=== PATIENT | male | born 1935 | race Hispanic/Latino ===

== ENCOUNTER 2019-02-27 11:04 | Inpatient (IN) | payer MEDICARE ==
[2019-02-27 11:10] VITALS: BMI 23.0
--- NOTE | 2019-02-27 14:23 | ED PDOC ---
HPI: Psych/Substance Abuse Time Seen by Provider: 02/27/19 11:28 Chief Complaint (Nursing): Psychiatric Evaluation Chief Complaint (Provider): Psych Eval History Per: Patient History/Exam Limitations: no limitations Onset/Duration Of Symptoms: Days Current Symptoms Are (Timing): Still Present Suicide/Self Injury Attempted (Context): None Modifying Factor(s): None Severity: None Associated Symptoms: Anxiety, Depression, Other (homicidal ideations) Involuntary Hold By: None Additional History Per: Patient Additional Complaint(s): 83 year old male with history of hypertension, depression and anxiety presents to the ED with complaints of having homicidal thoughts for "sometime" now. Patient reports he has thoughts of hurting his because for the past year they having been having several marital problems, although for the 3 weeks they having been very "loving" to each other. Patient states yesterday while cutting a pill he noted the knife that he was using and said to himself " this would be a long enough knife to reach the heart". Patient states he has never attempted to hurt his but is aware that his thoughts are not "good" and he called adult protected services this morning and was advised to come to ED for evaluation. Patient denies drugs or alcohol use. Denies auditory or visual hallucinations. Denies physical complaints. Past Medical History Reviewed: Historical Data, Nursing Documentation, Vital Signs Vital Signs: Last Vital Signs Temp 98.4 F 02/27/19 11:07 Pulse 70 02/27/19 11:07 Resp 16 02/27/19 11:07 BP 212/87 H 02/27/19 11:07 Pulse Ox 98 02/27/19 11:07 HUA Report Viewed: Yes Primary Care Provider: Non [facility] Provider, - Medical History PMH: Anxiety, Depression, HTN - Family History Family History: States: Unknown Family Hx - Living Arrangements Living Arrangements: With Family - Immunization History Hx Tetanus Toxoid Vaccination: No Hx Influenza Vaccination: No Hx Pneumococcal Vaccination: No - Home Medications Home Medications: Ambulatory Orders Medication Instructions Recorded Alfuzosin HCl [Uroxatral] 10 mg PO DAILY 02/27/19 Metoprolol Tartrate [Lopressor] 12.5 mg PO DAILY 02/27/19 - Allergies Allergies/Adverse Reactions: Allergies Allergy/AdvReac Type Severity Reaction Status Date / Time Penicillins Allergy RASH Verified 02/27/19 11:39 Sulfa (Sulfonamide Allergy RASH Verified 02/27/19 11:39 Antibiotics) Review of Systems ROS Statement: Except As Marked, All Systems Reviewed And Found Negative Psych: Positive for: Other (homicidal ideations). Negative for: Anxiety, Depression, Suicidal ideation, Withdrawal Physical Exam - Reviewed Nursing Documentation Reviewed: Yes Vital Signs Reviewed: Yes - Physical Exam Appears: Positive for: Well, Non-toxic, No Acute Distress Head Exam: Positive for: ATRAUMATIC, NORMAL INSPECTION, NORMOCEPHALIC Skin: Positive for: Normal Color, Warm, DRY Eye Exam: Positive for: EOMI, Normal appearance, PERRL ENT: Positive for: Normal ENT Inspection. Negative for: Nasal Congestion, Tonsillar Exudate, Tonsillar Swelling Neck: Positive for: Normal, Painless ROM, Supple Cardiovascular/Chest: Positive for: Regular Rate, Rhythm, Chest Non Tender Respiratory: Positive for: CNT, Normal Breath Sounds Pulses-Radial (L): 2+ Pulses-Radial (R): 2+ Gastrointestinal/Abdominal: Positive for: Normal Exam, Bowel Sounds (normoactive ), Soft. Negative for: Tenderness, Distended Back: Positive for: Normal Inspection Extremity: Positive for: Normal ROM. Negative for: Deformity, Swelling Neurological/Psych: Positive for: Awake, Alert, Normal Tone, Oriented, Mood/Affect (pleasant, good eye contact, well groomed ) - Laboratory Results Result Diagrams: 02/28/19 06:27 02/28/19 06:27 - ECG ECG Rhythm: Positive for: Sinus Rhythm, 1st Degree Heart Block Interpretation Of ECG: EKG SEEN BY DR. TROY Rate: 69 O2 Sat by Pulse Oximetry: 98 Pulse Ox Interpretation: Normal - Radiology X-Ray: Read By Radiologist X-Ray Interpretation: No Acute Disease Medical Decision Making Medical Decision Making: --CBC --CMP --TROPONIN --UDS --UA --CHEST XRAY --ALCOHOL --ACETOMINOPHEN --CRISIS EVAL 15:00 TEMP:98.4 HR: 95 B/P:155/85 O2SAT: 95% RM AIR LABS AND CHEST XRAY REVIEWED BY ME. UNREMARKABLE. PATIENT MEDICALLY CLEARED FOR PSYCH EVALUATION. 16:22 temp: 98.4 hr: 56 b/p:151/88 o2sat: 99% rm air. no change in condition, pending psych eval disposition, on 1:1. 17:53 Patient to be admitted to [facility], Dx: Homicidal Ideations, Dr. doyle. Disposition - Clinical Impression Clinical Impression: Homicidal ideation - Patient ED Disposition Is Patient to be Admitted: Yes Counseled Patient/Family Regarding: Diagnosis - Disposition Disposition Time: 17:53 Condition: STABLE - Pt Status Changed To: Hospital Disposition Of: Inpatient - Admit Certification Admit to Inpatient:: After my assessment, the patient will require hospitalization for at least two midnights. This is because of the severity of symptoms shown, intensity of services needed, and/or the medical risk in this patient being treated as an outpatient. - POA Present On Arrival: None
[2019-02-27 14:27] LABS: URINE BACTERIA RARE (<OCC); URINE BILIRUBIN NEGATIVE (NEGATIVE); URINE BLOOD NEGATIVE (NEGATIVE); URINE CLARITY CLEAR (Clear); URINE COLOR YELLOW (YELLOW); URINE GLUCOSE (UA) NEG (NEGATIVE); URINE LEUKOCYTE ESTERASE NEG Leu/uL (Negative); URINE PROTEIN 100 mg/dL (NEGATIVE); URINE UROBILINOGEN 0.2-1.0 mg/dL (0.2-1.0)
[2019-02-27 14:30] LABS: BASO % 0.7 % (0.0-2.0); EOS # 0.1 K/uL (0.0-0.7); EOS % 1.8 % (0.0-4.0); HEMOGLOBIN 14.3 g/dL (12.0-18.0); LYMPH # 0.9 K/uL (1.0-4.3); LYMPH % 17.9 % (20.0-40.0); MEAN CELL VOLUME 98.7 fl (80.0-94.0); MEAN CORPUSCULAR HEMOGLOBIN 32.2 pg (27.0-31.0); MEAN CORPUSCULAR HGB CONC 32.7 g/dL (33.0-37.0); MEAN PLATELET VOLUME 12.2 fl (7.2-11.7); MONO # 0.4 K/uL (0.0-0.8); MONO % 8.4 % (0.0-10.0); NEUT # 3.4 K/uL (1.8-7.0); NEUT % 71.2 % (50.0-75.0); NRBC % 0.1 % (0.0-0.0); RBC 4.45 Mil/uL (4.40-5.90); RED CELL DISTRIBUTION WIDTH 13.7 % (11.5-14.5); WHITE BLOOD COUNT 4.8 K/uL (4.8-10.8)
[2019-02-27 14:31] LABS: ALB/GLOB RATIO 1.4 (1.0-2.1); ALBUMIN 3.9 g/dL (3.5-5.0); ALT/SGPT 30 U/L (21-72); AST/SGOT 28 U/L (17-59); BLOOD UREA NITROGEN 21 mg/dl (9-20); CALCIUM 8.6 mg/dL (8.4-10.2); GFR NON-AFRICAN AMERICAN > 60
[2019-02-27 14:33] LABS: BARBITURATES, UR NEGATIVE (NEGATIVE); BENZODIAZEPINES, UR NEGATIVE (NEGATIVE); OPIATES, UR NEGATIVE (NEGATIVE); PHENCYCLIDINE, UR NEGATIVE (NEGATIVE)
--- NOTE | 2019-02-27 15:03 | RAD ---
Date of service: 02/27/2019 HISTORY: medical clearance COMPARISON: No prior. FINDINGS: LUNGS: No active pulmonary disease. PLEURA: No significant pleural effusion identified, no pneumothorax apparent. CARDIOVASCULAR: No radiographic findings to suggest acute or significant cardiovascular disease. Atherosclerotic calcifications identified primarily aortic arch. OSSEOUS STRUCTURES: No significant abnormalities. VISUALIZED UPPER ABDOMEN: Normal. OTHER FINDINGS: None. IMPRESSION: No active disease.
--- NOTE | 2019-02-27 17:49 | CARD ---
APPROVED REPORT Date of service: 02/27/2019 EKG Measurement Heart [id number] <Conclusion> Sinus rhythm with 1st degree AV block with premature supraventricular complexes Right bundle branch block Inferior infarct, age undetermined Abnormal ECG
[2019-02-28] MEDS ORDERED: Bismuth Subsalicylate 262 mg/15 ml Sus (240 ml) PO PRN (01:00)
[2019-02-28] MEDS ORDERED: Magnesium Hydroxide Susp 30 ml UD PO PRN (01:00)
[2019-02-28] MEDS ORDERED: Alum-Mag Hydrox-Simethicone Susp (30 mL) PO PRN (01:00)
--- NOTE | 2019-02-28 02:11 | PCM.BM ---
<EverAmritGeorge - Last Filed: 02/28/19 02:08> Treatment Plan Problems - Problems identified on initial assessmt Homicidal Ideation Date Initiated: 02/28/19 Time Initiated: 02:09 Assessment reference: NA Status: Active Agitated/aggressive behavior Date Initiated: 02/28/19 Time Initiated: 02:09 Assessment reference: NA Status: Active Ineffective Impulse Control Date Initiated: 02/28/19 Time Initiated: 02:10 Assessment reference: NA Status: Active Anxiety Date Initiated: 02/28/19 Time Initiated: 02:10 Assessment reference: NA Status: Active Fear Date Initiated: 02/28/19 Time Initiated: 02:10 Assessment reference: NA Status: Active Treatment assets and liabiliti Patient Assests: adapts well, cooperative, educated, insightful, ADL independent, negotiates basic needs, cognitively intact Patient Liabilities: relationship conflicts, medical problems, auditory impairment - Milieu Protocol Maintain good personal hygiene: every shift Encourage regular showers, every shift Remind patient to perform daily oral care, every shift Assist patient to perform ADL's Conduct patient checks and document Observation sheet: Q15 minutes Maintain personal safety: every shift Educate patient to report safety concerns to staff, every shift Monitor environment for contraband/sharps Medication safety: Monitor for expected outcome, potential side effects: every shift, Assess barriers to learning: every shift, Assess readiness for medication education: every shift <Aracelis Goncalves - Last Filed: 02/28/19 11:16> - Diagnosis (1) Major depressive disorder Status: Acute Interventions: Medication management, Individual and group therapy, Psychoeducation 02/28/19 11:17 <Dada Harley - Last Filed: 03/04/19 10:05> Family Contact Family involvement: Family/SO is involved Family contact: Patient agrees to contact, Family has been contacted by patient, Telephone contact initiated by staff Family contact name: Elizabeth Banks - Family contacted how many times per week?: 3 Family contact comment: Head Of [employer] spoke with pt's , Elizabeth [phone], from 1711 until 1721 on 03/01/19 to discuss pt returning home on 03/03/19. Elizabeth reported that she feels safe with pt returning home and is "looking forward to seeing him." Elizabeth denied that pt has even been physically abusive and even does not view his derogatory statements as verbal abuse. Elizabeth reported that pt has been better to her as of late and reported that he was a good father. Elizabeth reported that pt cares for things around the home and she is not used to being alone. Elizabeth reported that they have been for almost 60 years. Elizabeth reported that pt always gets help for things immediately and is proud of the pt for coming to the hospital as it showed concern and initiative, but that she did not feel pt warranted admission. Head Of [employer] explained 48 hour notice and that pt is refusing medications on the unit. Elizabeth reported that she does not think pt should take medications and is also fearful of their side effects. Head Of [employer] explained that pt would be provided with a taxi voucher to return home on 03/03/19. - Goals for Treatment Patient goals for treatment: Pt did not express any goals for treatment at time of treatment team. Pt is refusing medication and reported that he would like to use pasr life regression to help him better control his thoughts and impulses. Patient's family/SO goals for treatment: Elizabeth offered no goals for treatment at this time and is looking forward to pt returning home. Discharge/Continuing Care - Education Needs Education Needs: Family Medication, Family Diagnosis/Disease Process, Family Coping Skills, Family Aftercare Safety Plan, Patient Medication, Patient Diagnosis/Disease Process, Patient Coping Skills, Patient Aftercare Safety Plan - Discharge Discharge Criteria: Tolerates medication w/o severe side effects, Free of Homicidal thoughts, Reduction of target symptoms Discharge to:: Home, With Family - Treatment Team Participation Patient/Family/SO Statement: 03/04/19 10:00 Pt seen in treatment team on 03/01/19. Pt seen in team from 1022 until 1037. Pt offered no complaints at this time and has signed a 48 hour notice asking to leave the unit. Pt reported that he no longer has thoughts to harm his and never had intent to act on thoughts. Pt reported that his has thrown out all of the knives in the home, and initially was very upset when pt told her about the thoughts. Pt reported him and his have spoken and she is more understanding and wants him to return home. Pt is still refusing medications and wants to engage in past life regression therapy to help manage his thoughts and impulses. Pt reported he will contact the developer of this modality, Dr. Syd León, to find a therapist. Pt reported that he needs to return home to help his around the house. Pt's affect and mood were broad and appropriate. Pt dressed in hospital gowns and wearing glasses. Pt's speech was at a normal rate and tone and his thought content and process were logical and goal directed. pt's insight and judgment are impaired. Pt made appropriate eye contact and his psychomotor movements are within normal limits for his age. Pt is oriented X4. Pt denied current SI/HI and AVT hallucinations. Discussed with Family/SO: Yes Was Patient/Family/SO present at Treatment Team Meeting: Yes
[2019-02-28 06:34] LABS: HEMOGLOBIN 15.6 g/dL (12.0-18.0); MEAN CELL VOLUME 98.9 fl (80.0-94.0); MEAN CORPUSCULAR HEMOGLOBIN 32.8 pg (27.0-31.0); MEAN CORPUSCULAR HGB CONC 33.2 g/dL (33.0-37.0); RBC 4.76 Mil/uL (4.40-5.90); RED CELL DISTRIBUTION WIDTH 13.9 % (11.5-14.5); WHITE BLOOD COUNT 5.2 K/uL (4.8-10.8)
[2019-02-28 06:45] LABS: IRON 139 ug/dL (49-181)
[2019-02-28 06:48] LABS: ALB/GLOB RATIO 1.4 (1.0-2.1); ALBUMIN 4.2 g/dL (3.5-5.0); ALT/SGPT 28 U/L (21-72); AST/SGOT 30 U/L (17-59); BLOOD UREA NITROGEN 25 mg/dl (9-20); CALCIUM 9.1 mg/dL (8.4-10.2); GFR NON-AFRICAN AMERICAN > 60; HDL CHOLESTEROL 48 MG/DL (30-70)
[2019-02-28 06:55] LABS: % IRON SATURATION 49 % (20-55); TOTAL IRON BINDING CAPACITY 285 ug/dL (250-450)
[2019-02-28 07:00] LABS: LDL CHOLESTEROL 127 mg/dL (0-129)
[2019-02-28 07:32] LABS: FERRITIN 87.6 ng/Ml (17.9-464)
--- NOTE | 2019-02-28 11:21 | PCM.PSYCH ---
Initial Psychiatric Evaluation - Initial Psychiatric Evaluation Type of Admission: Voluntary Legal Status: Capacity Chief Complaint (in patient's own words): Homicidal thoughts Patient's Reaction to Hospitalization: HPI: 83 yo male w/ h/o depression and treatment at the [facility], presents after he called APS because he was having homicidal thoughts to stab his . He reports that the thoughts are intrusive and he finds them disturbing. He denies that he currently wants to kill her. He also reports feeling anxious that his may try to kill him in his sleep. He currently feels safe in the hospital. He also reports feeling depressed and anxious. He does not want to take psychotropic medications at this time and reports that he was prescribed an antidepressants in the past, but stopped taking it. PPHx: Denies h/o psychiatric admissions; h/o outpatient tx at the [facility] PMHx: HTN, h/o OK s/p 10 stents ALL: PCN, Sulfa SHx: Lives w/ his ; denies drugs/etoh/cig; 2 adult daughters Current Medications: Active Medications Generic Name Dose Route Start Last Admin Trade Name Freq PRN Reason Stop Dose Admin Acetaminophen 650 mg 02/28/19 01:00 Tylenol 325mg Tab PO Q4 PRN Other Al Hydrox/Mg Hydrox/Simethicone 30 ml 02/28/19 01:00 Maalox Plus 30 Ml PO Q4 PRN Dyspepsia Bismuth Subsalicylate 524 mg 02/28/19 01:00 Pepto-Bismol PO Q4 PRN Diarrhea Lorazepam 0.5 mg 02/28/19 01:00 Ativan PO 03/14/19 01:01 HS PRN Insomnia Lorazepam 0.5 mg 02/28/19 01:00 Ativan PO 03/14/19 01:01 Q6 PRN Anixety/Agitation Magnesium Hydroxide 30 ml 02/28/19 01:00 Milk Of Magnesia PO HS PRN Constipation Past Psychiatric History - Past Psychiatric History Pertinent Medical Hx (Current Medical&Sleep Prob, Allergies): Allergies Allergy/AdvReac Type Severity Reaction Status Date / Time Penicillins Allergy RASH Verified 02/27/19 11:39 Sulfa (Sulfonamide Allergy RASH Verified 02/27/19 11:39 Antibiotics) Alfuzosin HCl [Uroxatral] 10 mg PO DAILY 02/27/19 Metoprolol Tartrate [Lopressor] 12.5 mg PO DAILY 02/27/19 Review of Systems - Psychiatric Psychiatric: As Per HPI, Abnormal Sleep Pattern, Anhedonia, Anxiety, Depression, Difficulty Concentrating, Homicidal Ideation, Memory Loss Mental Status Examination - Personal Presentation Personal Presentation: Looks stated age - Affect Affect: Constricted - Motor Activity Motor Activity: Calm - Reliability in Providing Information Reliability in Providing Information: Poor, due to cognitve impairment - Speech Speech: Coherent - Mood Mood: Depressed - Formal Thought Process Formal Thought Process: Loosening of associations - Hallucinations/Delusions Additional comments: No AH/VH - Obsessions/Compulsions Obsessions: No Compulsions: No - Cognitive Functions Orientation: Person, Place, Situation, Time Sensorium: Alert Judgement: Intact, as evidence by: Insight regarding need for hospitalization - Risk Risk: Homicidal - Strength & Assets Inventory Strength & Assets Inventory: Family support, Employment history, Cooperative - Limitations Limitations: Decreased memory, recent DSM 5 DX - DSM 5 DSM 5 Diagnosis: Major Depressive Disorder; r/o Major Neurocognitive Disorder - Recommended/Plan of Treatment Treatment Recommendations and Plan of Treatment: Major Depressive Disorder; r/o Major Neurocognitive Disorder -Admit to psychiatry unit -Obtain collateral history -Individual and group therapy -Medicine consult -Patient not agreeable to treatment with psychotropic medications at this time -Disposition planning - Smoking Cessation Smoking Cessation Initiated: No Reason for not providing: Not nidicated
[2019-02-28 13:19] LABS: FOLATE 7.8 ng/mL
[2019-02-28] MEDS ORDERED: RISPERIDONE 0.25 MG ODT PO PRN (13:36)
--- NOTE | 2019-02-28 15:03 | CP.PCM.CON ---
History of Present Illness - History of Present Illness History of Present Illness: 83 yo male with history of HTN, CAD and depression admitted to psyche unit because of homicidal ideation. Review of Systems - Review of Systems All systems: reviewed and no additional remarkable complaints except (aside from those mentioned above, 12 point system review were negative by me) Past Patient History - Past Social History Smoking Status: Never Smoked Chewing Tobacco Use: No Cigar Use: No Alcohol: None - CARDIAC Hx Cardiac Disorders: No - PULMONARY Hx Respiratory Disorders: No Hx Tuberculosis: No - NEUROLOGICAL Hx Neurological Disorder: No HX Cerebrovascular Accident: No Hx Seizures: No - HEENT Hx HEENT Problems: No - RENAL Hx Chronic Kidney Disease: No - ENDOCRINE/METABOLIC Hx Endocrine Disorders: No - HEMATOLOGICAL/ONCOLOGICAL Hx Cancer: No Hx Human Immunodeficiency Virus (HIV): No - INTEGUMENTARY Hx Dermatological Problems: No - MUSCULOSKELETAL/RHEUMATOLOGICAL Hx Musculoskeletal Disorders: Yes Hx Falls: Yes - GASTROINTESTINAL Hx Gastrointestinal Disorders: No - GENITOURINARY/GYNECOLOGICAL Hx Genitourinary Disorders: Yes Hx Prostate Problems: Yes - PSYCHIATRIC Hx Substance Use: No Meds Allergies/Adverse Reactions: Allergies Allergy/AdvReac Type Severity Reaction Status Date / Time Penicillins Allergy RASH Verified 02/27/19 11:39 Sulfa (Sulfonamide Allergy RASH Verified 02/27/19 11:39 Antibiotics) - Medications Medications: Current Medications Acetaminophen (Tylenol 325mg Tab) 650 mg PO Q4 PRN PRN Reason: Other Al Hydrox/Mg Hydrox/Simethicone (Maalox Plus 30 Ml) 30 ml PO Q4 PRN PRN Reason: Dyspepsia Bismuth Subsalicylate (Pepto-Bismol) 524 mg PO Q4 PRN PRN Reason: Diarrhea Lorazepam (Ativan) 0.5 mg PO HS PRN PRN Reason: Insomnia Stop: 03/14/19 01:01 Lorazepam (Ativan) 0.5 mg PO Q6 PRN PRN Reason: Anixety/Agitation Stop: 03/14/19 01:01 Magnesium Hydroxide (Milk Of Magnesia) 30 ml PO HS PRN PRN Reason: Constipation Metoprolol Tartrate (Lopressor) 25 mg PO Q12 VASYL Risperidone (Risperidone Odt 0.25mg) 0.25 mg PO Q12 PRN PRN Reason: Agitation Physical Exam - Constitutional Appears: No Acute Distress - Head Exam Head Exam: ATRAUMATIC - Eye Exam Eye Exam: absent: Scleral icterus - ENT Exam ENT Exam: Mucous Membranes Moist - Neck Exam Neck exam: Negative for: Meningismus - Respiratory Exam Respiratory Exam: absent: Rales, Rhonchi, Wheezes, Respiratory Distress - Cardiovascular Exam Cardiovascular Exam: REGULAR RHYTHM, +S1, +S2 - GI/Abdominal Exam GI & Abdominal Exam: Soft. absent: Tenderness - Rectal Exam Rectal Exam: Deferred - Neurological Exam Neurological exam: Alert, Oriented x3 - Psychiatric Exam Psychiatric exam: Normal Affect - Skin Skin Exam: Dry, Intact Results - Vital Signs Recent Vital Signs: Last Vital Signs Temp 97.5 F L 02/28/19 06:00 Pulse 56 L 02/28/19 06:00 Resp 19 02/28/19 06:00 BP 164/75 H 02/28/19 06:00 Pulse Ox 99 02/28/19 00:33 - Labs Result Diagrams: 02/28/19 06:27 02/28/19 06:27 Labs: Laboratory Results - last 24 hr 02/28/19 02/28/19 02/28/19 06:27 06:27 06:27 WBC 5.2 RBC 4.76 Hgb 15.6 Hct 47.1 MCV 98.9 H MCH 32.8 H MCHC 33.2 RDW 13.9 Plt Count 97 L Sodium 142 Potassium 3.5 L Chloride 101 Carbon Dioxide 32 H Anion Gap 13 BUN 25 H Creatinine 1.0 Est GFR ( Amer) > 60 Est GFR (Non-Af Amer) > 60 Random Glucose 99 Hemoglobin A1c Calcium 9.1 Iron 139 TIBC 285 % Saturation 49 Ferritin 87.6 Total Bilirubin 1.1 AST 30 ALT 28 Alkaline Phosphatase 72 Total Protein 7.2 Albumin 4.2 Globulin 3.0 Albumin/Globulin Ratio 1.4 Triglycerides 75 Cholesterol 206 H LDL Cholesterol Direct 127 HDL Cholesterol 48 Vitamin B12 573 Folate 7.8 Free T4 Thyroxine (T4) 9.55 TSH 3rd Generation 2.98 02/28/19 02/28/19 06:27 06:27 WBC RBC Hgb Hct MCV MCH MCHC RDW Plt Count Sodium Potassium Chloride Carbon Dioxide Anion Gap BUN Creatinine Est GFR ( Amer) Est GFR (Non-Af Amer) Random Glucose Hemoglobin A1c 5.9 Calcium Iron TIBC % Saturation Ferritin Total Bilirubin AST ALT Alkaline Phosphatase Total Protein Albumin Globulin Albumin/Globulin Ratio Triglycerides Cholesterol LDL Cholesterol Direct HDL Cholesterol Vitamin B12 Folate Free T4 1.34 Thyroxine (T4) TSH 3rd Generation Assessment & Plan (1) Homicidal ideation Status: Acute Comment: anjel is managing
--- NOTE | 2019-03-01 09:45 | CP.PCM.CON ---
History of Present Illness - History of Present Illness History of Present Illness: Pt is an 83 year old male admitted to [facility] and referred to the telegraphic typewriter repairer for evaluation. ON the DRS, pt scored an overall score of 126. Pt scored within normal limits on Attention, Construction, Memory, and conceptualization tasks. Pt's Initiation skills fell in the Deficient Range. Overall 126 Attention 36 conceptualization 36 Memory 25 Construction 4 Initiation 25 (32= within normal limits). painting trades worker consulted for discharge/future planning. Thank you for this referral, Dr. Herrera Past Patient History - Past Social History Smoking Status: Never Smoked Chewing Tobacco Use: No Cigar Use: No Alcohol: None - CARDIAC Hx Cardiac Disorders: No - PULMONARY Hx Respiratory Disorders: No Hx Tuberculosis: No - NEUROLOGICAL Hx Neurological Disorder: No HX Cerebrovascular Accident: No Hx Seizures: No - HEENT Hx HEENT Problems: No - RENAL Hx Chronic Kidney Disease: No - ENDOCRINE/METABOLIC Hx Endocrine Disorders: No - HEMATOLOGICAL/ONCOLOGICAL Hx Cancer: No Hx Human Immunodeficiency Virus (HIV): No - INTEGUMENTARY Hx Dermatological Problems: No - MUSCULOSKELETAL/RHEUMATOLOGICAL Hx Musculoskeletal Disorders: Yes Hx Falls: Yes - GASTROINTESTINAL Hx Gastrointestinal Disorders: No - GENITOURINARY/GYNECOLOGICAL Hx Genitourinary Disorders: Yes Hx Prostate Problems: Yes - PSYCHIATRIC Hx Substance Use: No Meds Allergies/Adverse Reactions: Allergies Allergy/AdvReac Type Severity Reaction Status Date / Time Penicillins Allergy RASH Verified 02/27/19 11:39 Sulfa (Sulfonamide Allergy RASH Verified 02/27/19 11:39 Antibiotics) - Medications Medications: Current Medications Acetaminophen (Tylenol 325mg Tab) 650 mg PO Q4 PRN PRN Reason: Other Al Hydrox/Mg Hydrox/Simethicone (Maalox Plus 30 Ml) 30 ml PO Q4 PRN PRN Reason: Dyspepsia Bismuth Subsalicylate (Pepto-Bismol) 524 mg PO Q4 PRN PRN Reason: Diarrhea Lorazepam (Ativan) 0.5 mg PO HS PRN PRN Reason: Insomnia Stop: 03/14/19 01:01 Lorazepam (Ativan) 0.5 mg PO Q6 PRN PRN Reason: Anixety/Agitation Stop: 03/14/19 01:01 Magnesium Hydroxide (Milk Of Magnesia) 30 ml PO HS PRN PRN Reason: Constipation Metoprolol Tartrate (Lopressor) 25 mg PO Q12 VASYL Last Admin: 03/01/19 08:42 Dose: 25 mg Risperidone (Risperidone Odt 0.25mg) 0.25 mg PO Q12 PRN PRN Reason: Agitation Results - Vital Signs Recent Vital Signs: Last Vital Signs Temp 98.1 F 03/01/19 06:00 Pulse 63 03/01/19 08:42 Resp 18 03/01/19 06:00 BP 154/70 H 03/01/19 08:42 Pulse Ox 99 02/28/19 00:33 - Labs Result Diagrams: 02/28/19 06:27 02/28/19 06:27 Labs: Laboratory Results - last 24 hr 02/28/19 02/28/19 02/28/19 06:27 06:27 06:27 Hemoglobin A1c 5.9 Folate 7.8 RPR Nonreactive
--- NOTE | 2019-03-01 10:45 | PCM.PYCHPN ---
Psychiatric Progress Note - Psychiatric Progress Note Patient seen today, length of contact: Pt evaluated, case discussed w/ team, chart reviewed Patient Chief Complaint: "I'm feeling better." Problems Identified/Issues Discussed: Patient reports that he no longer has intrusive thoughts to harm his . He denies acute AH/VH/paranoia. He feels that he will be safe at home and does not believe he will harm his or his will harm him. He is not agreeable to treatment with psychotropic medications at this time. Patient agreeable to treatment team calling patient's for collateral history. Medication Change: No (Patient not agreeable to medications) Medical Record Reviewed: Yes Consults ordered or reviewed: Medicine consult, Psychology consult Mental Status Examination - Cognitive Function Orientation: Person, Place, Situation, Time Memory: Intact Decription of patient's judgement and insights: Improving I/J - Mood Mood: Anxious - Affect Affect: Constricted - Formal Thought Process Formal Thought Process: Loosening of associations, Circumstantial Psychotic Thoughts and Behaviors: Denies acute AH/VH - Suicidal Ideation Suicidal Ideation: No - Homicidal Ideation Homicidal Ideation: No Goal/Treatment Plan - Goal/Treatment Plan Need for Continued Stay: Remain at risks for inpatient hospitalization Progress Toward Problem(s) and Goals/Treatment Plan: Major Depressive Disorder -Obtain collateral history -Individual and group therapy -Medicine consult -Psychology consult -Patient not agreeable to treatment with psychotropic medications at this time -Disposition planning- will continue to observe clinically for safety
[2019-03-01 21:29] VITALS: O2SAT 98
--- NOTE | 2019-03-02 14:14 | PCM.PYCHPN ---
Psychiatric Progress Note - Psychiatric Progress Note Patient seen today, length of contact: Pt evaluated, case discussed w/ team, chart reviewed Patient Chief Complaint: may be I can use the help Problems Identified/Issues Discussed: pt on evaluation reported that his anger stems from the fact that neither him or his have any help, they both are responsible for all their instrumental daily activities , which is currently hard on them particularly with their limited mobility, pt also reported that he has been hoarding and has a cluttered house psychoeducation provided discussed importance of medication compliance, kirstie discussed the need to be linked to social work case manager, pt agreed to continue with hospitalization for further stabilization , denied any current suicidal or homicidal ideation denied perceptual disturbances DSM 5 Symptoms Update: depression Medication Change: Yes (start lexapro 5mg qhs ) Medical Record Reviewed: Yes Mental Status Examination - Cognitive Function Orientation: Person, Place, Situation, Time Memory: Intact Association: WNL Fund of Knowledge: WN Decription of patient's judgement and insights: poor - Mood Mood: Anxious - Affect Affect: Constricted - Speech Speech: Appropriate - Formal Thought Process Formal Thought Process: Circumstantial - Suicidal Ideation Suicidal Ideation: No - Homicidal Ideation Homicidal Ideation: No Goal/Treatment Plan - Goal/Treatment Plan Need for Continued Stay: Remain at risks for inpatient hospitalization, Discharge may exacerbated symptoms Progress Toward Problem(s) and Goals/Treatment Plan: start lexapro 5mg qhs referral to social work case manager on discharge
--- NOTE | 2019-03-03 11:52 | PCM.PYCHPN ---
Psychiatric Progress Note - Psychiatric Progress Note Patient seen today, length of contact: Pt evaluated, case discussed w/ team, chart reviewed Patient Chief Complaint: I AM FINE Problems Identified/Issues Discussed: pt seen in bed , calm cooperative , compliant with treatment no reported side effects, denied S/H I denied perceptual disturbances Medication Change: Yes (start lexapro 5mg qhs ) Medical Record Reviewed: Yes Mental Status Examination - Cognitive Function Orientation: Person, Place, Situation, Time Memory: Intact Association: WNL Fund of Knowledge: WN Decription of patient's judgement and insights: poor - Mood Mood: Anxious - Affect Affect: Constricted - Speech Speech: Appropriate - Formal Thought Process Formal Thought Process: Circumstantial - Suicidal Ideation Suicidal Ideation: No - Homicidal Ideation Homicidal Ideation: No Goal/Treatment Plan - Goal/Treatment Plan Need for Continued Stay: Remain at risks for inpatient hospitalization, Discharge may exacerbated symptoms Progress Toward Problem(s) and Goals/Treatment Plan: lexapro 5mg qhs referral to socially responsible investment adviser on discharge
--- NOTE | 2019-03-04 12:21 | PCM.PYCHPN ---
Psychiatric Progress Note - Psychiatric Progress Note Patient seen today, length of contact: Pt evaluated, case discussed w/ team, chart reviewed Patient Chief Complaint: I hope I can get some help then I will leave Problems Identified/Issues Discussed: pt seen in bed , calm cooperative , compliant with treatment no reported side effects, reported worried about his current living situation, requesting help with his cluttered apartment , denied S/H I denied perceptual disturbances Medication Change: Yes (start lexapro 5mg qhs ) Medical Record Reviewed: Yes Mental Status Examination - Cognitive Function Orientation: Person, Place, Situation, Time Memory: Intact Association: WNL Fund of Knowledge: [facility] Decription of patient's judgement and insights: poor - Mood Mood: Anxious - Affect Affect: Constricted - Speech Speech: Appropriate - Formal Thought Process Formal Thought Process: Circumstantial - Suicidal Ideation Suicidal Ideation: No - Homicidal Ideation Homicidal Ideation: No Goal/Treatment Plan - Goal/Treatment Plan Need for Continued Stay: Remain at risks for inpatient hospitalization, Discharge may exacerbated symptoms Progress Toward Problem(s) and Goals/Treatment Plan: lexapro 5mg qhs referral to social studies department chair on discharge
[2019-03-04 16:04] VITALS: RESP 20
[2019-03-05 06:35] VITALS: TEMP 98.4
[2019-03-05 08:48] VITALS: BP 159/77; PULSE 81
--- NOTE | 2019-03-05 08:53 | PCM.PYCHDC ---
Mental Status Examination - Mental Status Examination Orientation: Person, Place, Situation, Time Memory: Intact Mood: Neutral Affect: Broad Speech: Appropriate Formal Thought Process: No Impairment Description of patient's judgement and insight: Fair I/J Psychotic Thoughts and Behaviors: Denies acute AH/VH/paranoia/delusions Suicidal Ideation: No Current Homicidal Ideation?: No Discharge Summary - Discharge Note Reason for Hospitalization: HPI: 83 yo male w/ h/o depression and treatment at the [facility], presents after he called APS because he was having homicidal thoughts to stab his . He reports that the thoughts are intrusive and he finds them disturbing. He denies that he currently wants to kill her. He also reports feeling anxious that his may try to kill him in his sleep. He currently feels safe in the hospital. He also reports feeling depressed and anxious. He does not want to take psychotropic medications at this time and reports that he was prescribed an antidepressants in the past, but stopped taking it. 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 Reason for request. 2. Findings. 3. Follow-up Consultations: Medicine consult, Psychology consult Summary of Hospital Course include:: 1. Description of specific treatment plan utilized for patients during their course of treatmen. 2. Summarize the time- course for resolution of acute symptoms and/or regressed behaviors. 3. Describe issues identified and worked on during hospitalization. 4. Describe medication utilized. 5. Describe medical problems identified and treated. 6. Reassessment of suicide risk Summary of Hospital Course: Patient was admitted to the psychiatry unit. Individual and group therapy were provided. Patient was treated with Lexapro 5 mg PO Daily. He denies acute depression/anxiety/AH/VH/SI/HI. He is psychiatrically stable for discharge at this time. - Diagnosis (1) Major depressive disorder Current Visit: Yes Status: Acute - Final Diagnosis (DSM 5) Condition upon Discharge: STABLE DSM 5: Major Depressive Disorder Disposition: HOME/ ROUTINE Prescriptions/Medication Reconciliation: Escitalopram [Lexapro] 5 mg PO DAILY #30 tab Metoprolol Tartrate [Lopressor] 25 mg PO Q12 #60 tab - Smoking Cessation Smoking Cessation Medication prescribed: No - Antipsychotic Medications Pt discharged on 2 or more routine antipsychotic medications: No
== END 2019-03-05 13:16 | disposition home or self-care (01) | DRG 881 ==
LOC: H.ER 11:04 → H.ERHOLD 17:53 → H.STEP 02-28 00:53
PROVIDERS: ADMIT Psychiatry & Neurology Psychiatry; ATTEND Psychiatry & Neurology Psychiatry
PROC: GZHZZZZ Group Psychotherapy (ICD-10-PCS; principal; 2019-02-27)
PROC: GZ58ZZZ Individual Psychotherapy, Cognitive-Behavioral (ICD-10-PCS; 2019-02-27)
DX: F32.9 Major depressive disorder, single episode, unspecified (principal); R45.850 Homicidal ideations; F41.9 Anxiety disorder, unspecified; I10 Essential (primary) hypertension; I25.10 Atherosclerotic heart disease of native coronary artery without angina pectoris; I25.2 Old myocardial infarction; Z63.0 Problems in relationship with spouse or partner; Z79.899 Other long term (current) drug therapy; Z88.0 Allergy status to penicillin; Z88.2 Allergy status to sulfonamides